=== PATIENT | female | born 1990 | race Caucasian/White ===

== ENCOUNTER 2021-02-21 22:23 | Emergency (ER) | payer BC, SELFPAY ==
[2021-02-21 23:45] VITALS: BP 103/85; PULSE 97; RESP 18; TEMP 37.3; O2SAT 98; BMI 37.8
== END 2021-02-22 00:02 | disposition left against medical advice (07) ==
PROVIDERS: Emergency Provider Emergency Medicine
DX: R06.02 Shortness of breath (principal); R50.9 Fever, unspecified
CPT/HCPCS: 99281; 99282

== ENCOUNTER 2021-02-22 10:25 | Emergency (ER) | payer BC, SELFPAY ==
--- NOTE | ~2021-02-22 | XR_ITS ---
EXAMINATION: XR CHEST CLINICAL INFORMATION: Productive cough. COMPARISON: None TECHNIQUE: 2 views of the chest were obtained. FINDINGS: No significant abnormality is noted involving the heart, lungs, mediastinum, bony thorax or soft tissues. XR/XR chest 2V IMPRESSION: Unremarkable examination.
[2021-02-22 11:09] VITALS: BP 130/82; PULSE 97; RESP 18; TEMP 36.8; O2SAT 97; BMI 31.2
[2021-02-22 12:42] LABS: COVID-19 Test Negative (Negative); IDNOW Serial# 9DD0AD1C
--- NOTE | 2021-02-22 12:45 | ED.URI ---
HPI - URI/Sore Throat General Chief Complaint: Upper Respiratory Symptoms Stated Complaint: bad cough Time Seen by Provider: 02/22/21 12:03 History of Present Illness HPI Narrative: Patient complains and cough and runny nose worsening over past 4 days and now she is coughing up sputum as well no shortness breath no chest pain no vomiting no diarrhea Related Data Previous Rx's Medication Instructions Recorded albuterol sulfate 2 inh INHALATION Q4H PRN #1 ea 02/22/21 azithromycin [Zithromax Z-Raul] See Rx Instructions .ROUTE 02/22/21 .COMPLEX #6 tab benzonatate [Tessalon Perles] 100 mg PO TID PRN #20 cap 02/22/21 ibuprofen 600 mg PO Q6H PRN #20 tab 02/22/21 Allergies Allergy/AdvReac Type Severity Reaction Status Date / Time No Known Allergies Allergy Unverified 05/29/20 17:22 [No Known Allergies*] Review of Systems Review of Systems: Positive for cough with sputum and runny nose Negatives are no fever no chills no dizziness or weakness no fainting no feeling faint no headache no neck pain no chest pain no shortness of breath no abdominal pain no nausea vomiting or diarrhea no calf swelling or pain, no leg swelling, no skin rash Yes all other systems are reviewed and are negative PMFSH Past Medical History Source: nursing notes reviewed Medical History (Updated 02/23/21 @ 00:01 by Ria Sam) No known health problems Social History Social History Advance Directives: Yes Advance Directives Information Provided: Yes Advance Directives on File: No Patient : No Physical Exam Vital Signs: Vital Signs: Last Vital Signs Temp 98.2 F 02/22/21 11:09 Pulse 97 02/22/21 11:09 Resp 18 02/22/21 11:09 BP 130/82 02/22/21 11:09 Pulse Ox 97 02/22/21 11:09 Body Mass Index 31.2 General appearance no acute distress The eyes no redness or discharge The pharynx is clear with moist mucous membranes no redness swelling or exudate Neck is supple Chest clear to auscultation bilaterally Heart no murmur Abdomen soft nontender Extremities no edema no calf tenderness or swelling Skin no rash Course Course Course Narrative: Chest x-ray did not show any pneumonia no acute abnormality, patient is breathing comfortably and is discharged with treatment for bronchitis MDM - URI/Sore Throat Lab Data Labs: Lab Results 02/22/21 Range/Units 12:13 COVID-19 ([facility]) Negative (Negative) COVID-19 Clin Com See Note Discharge Plan Discharge Clinical Impression: Bronchitis Patient Disposition: Home, Self-Care Additional Instructions: COVID test was negative Chest x-ray was normal We started an antibiotic for bronchitis or possible early pneumonia not seen on the x-ray I wrote you for an albuterol inhaler is a heard a very small wheeze, so use it if you develop any shortness of breath or your aware of any wheezing Return any time for difficulty breathing any worse condition or any concerns Prescriptions: New azithromycin [Zithromax Z-Raul] 250 mg tablet See Rx Instructions .ROUTE .COMPLEX Qty: 6 RF: 0 benzonatate [Tessalon Perles] 100 mg capsule 100 mg PO TID PRN (Reason: cough) Qty: 20 RF: 0 ibuprofen 600 mg tablet 600 mg PO Q6H PRN (Reason: fever or pain) Qty: 20 RF: 0 albuterol sulfate 90 mcg/actuation aerosol powdr breath activated 2 inh inhalation Q4H PRN (Reason: shortness of breath or wheezing) Qty: 1 RF: 0 Stand Alone Forms: Work/School Release Interventions: ED Discharge Assessment Last Done: 02/22/21 13:01 Discharge Date/Time: 02/22/21 13:02
== END 2021-02-22 13:02 | disposition home or self-care (01) ==
PROVIDERS: Physician Assistant Medical; Emergency Provider Emergency Medicine Emergency Medical Services
DX: J40 Bronchitis, not specified as acute or chronic (principal); Z20.822 Contact with and (suspected) exposure to COVID-19
CPT/HCPCS: 36415; 71046; 87635; 99283

== ENCOUNTER → 2021-05-20 10:10 | Outpatient (BNVA) | payer OTHER, SELFPAY | PROVIDERS: Visit Provider Physician Assistant Medical | DX: Z13.89 Encounter for screening for other disorder (principal) | CPT/HCPCS: 99203 ==

== ENCOUNTER → 2021-05-22 14:55 | Outpatient (BNVA) | payer OTHER, SELFPAY | PROVIDERS: Visit Provider Physician Assistant Medical | DX: T25.291A Burn of second degree of multiple sites of right ankle and foot, initial encounter (principal); X12.XXXA Contact with other hot fluids, initial encounter | CPT/HCPCS: 99213 ==

== ENCOUNTER → 2021-05-27 09:36 | Outpatient (BNVA) | payer OTHER, SELFPAY | PROVIDERS: Visit Provider Physician Assistant Medical | DX: T25.291A Burn of second degree of multiple sites of right ankle and foot, initial encounter (principal); X12.XXXA Contact with other hot fluids, initial encounter | CPT/HCPCS: 87071; 87077; 87186; 87205; 99213 ==

== ENCOUNTER → 2021-05-29 11:44 | Outpatient (BNVA) | payer OTHER, SELFPAY | PROVIDERS: Visit Provider Physician Assistant | DX: T25.211A Burn of second degree of right ankle, initial encounter (principal); L03.115 Cellulitis of right lower limb | CPT/HCPCS: 99213 ==

== ENCOUNTER → 2021-06-02 13:15 | Outpatient (BNVA) | payer OTHER, SELFPAY | PROVIDERS: Visit Provider Physician Assistant Medical | DX: T25.211A Burn of second degree of right ankle, initial encounter (principal); X58.XXXA Exposure to other specified factors, initial encounter | CPT/HCPCS: 99213 ==

== ENCOUNTER → 2021-06-08 10:53 | Outpatient (BNVA) | payer OTHER, SELFPAY | PROVIDERS: Visit Provider Physician Assistant Medical | DX: T25.221A Burn of second degree of right foot, initial encounter (principal); X12.XXXA Contact with other hot fluids, initial encounter | CPT/HCPCS: 99213 ==

== ENCOUNTER → 2021-06-17 13:24 | Outpatient (BNVA) | payer OTHER, SELFPAY | PROVIDERS: Visit Provider Physician Assistant Medical | DX: T25.221D Burn of second degree of right foot, subsequent encounter (principal) | CPT/HCPCS: 99213 ==

== ENCOUNTER → 2021-06-24 15:44 | Outpatient (BNVA) | payer OTHER, SELFPAY | PROVIDERS: Visit Provider Physician Assistant Medical | DX: T24.201D Burn of second degree of unspecified site of right lower limb, except ankle and foot, subsequent encounter (principal); X08.8XXD Exposure to other specified smoke, fire and flames, subsequent encounter | CPT/HCPCS: 99213 ==

== ENCOUNTER → 2021-07-01 15:10 | Outpatient (BNVA) | payer OTHER, SELFPAY | PROVIDERS: Visit Provider Physician Assistant Medical | DX: T24.201D Burn of second degree of unspecified site of right lower limb, except ankle and foot, subsequent encounter (principal) | CPT/HCPCS: 99213 ==

== ENCOUNTER → 2021-07-15 14:05 | Outpatient (BNVA) | payer OTHER, SELFPAY | PROVIDERS: Visit Provider Physician Assistant Medical | DX: T25.211D Burn of second degree of right ankle, subsequent encounter (principal); X11.8XXD Contact with other hot tap-water, subsequent encounter | CPT/HCPCS: 99213 ==

== ENCOUNTER 2021-08-03 22:10 | Emergency (ER) | payer BC, SELFPAY ==
[2021-08-03 22:37] VITALS: BP 123/64; PULSE 96; RESP 18; TEMP 36.6; O2SAT 98; BMI 35.2
--- NOTE | 2021-08-03 23:30 | ED.WOUNDLAC ---
HPI - Wound/Laceration General Chief Complaint: Wound/Laceration Stated Complaint: Finger lac Time Seen by Provider: 08/03/21 23:21 Source: patient Mode of arrival: ambulatory Limitations: no limitations History of Present Illness HPI narrative: 30-year-old female past medical history significant for asthma presents to the emergency department with complaints of a small laceration to the distal aspect of her right index finger after cutting herself with a can at around 8:00 p.m. today. She states that she can move her finger, and feel it however she was unsure if she would require stitches. She is not up-to-date on tetanus shot. She denies fevers, chills, nausea, vomiting, chest pain, shortness of breath, abdominal pain, weakness. Onset (ago): hour(s) (4) Location: other (right index finger ) Place: home Patient tetanus UTD: No Context: accidental Associated symptoms: pain Related Data Previous Rx's Medication Instructions Recorded albuterol sulfate 90 mcg/actuation 2 inh INHALATION Q4H PRN #1 ea 02/22/21 breath activated powder inhaler azithromycin 250 mg tablet See Rx Instructions .ROUTE 02/22/21 (Zithromax Z-Raul) .COMPLEX #6 tab benzonatate 100 mg capsule 100 mg PO TID PRN #20 cap 02/22/21 (Tessalon Perles) ibuprofen 600 mg tablet 600 mg PO Q6H PRN #20 tab 02/22/21 doxycycline hyclate 100 mg capsule 100 mg PO BID 7 Days #14 cap 08/03/21 Allergies Allergy/AdvReac Type Severity Reaction Status Date / Time No Known Allergies Allergy Unverified 05/29/20 17:22 [No Known Allergies*] Review of Systems Review of Systems: Constitutional : No Fever, No Chills, Cardiovascular : No Chest Pain, No SOB Respiratory : No Dyspnea Gastrointestinal : No abdominal pain Musculoskeletal : No Joint Swelling Skin : No rash, positive skin laceration Neuro : No Weakness, No Numbness Psych : No SI/HI PMFSH Past Medical History Attestation statement: The following information was validated with the patient. Source: old records reviewed and nursing notes reviewed Medical History (Updated 08/03/21 @ 23:35 by TRES Adler) No known health problems Social History Social History Advance Directives: No Advance Directives Information Provided: No Patient : No Physical Exam Vital Signs: Vital Signs: Last Vital Signs Temp 97.8 F 08/03/21 22:37 Pulse 96 08/03/21 22:37 Resp 18 08/03/21 22:37 BP 123/64 08/03/21 22:37 Pulse Ox 98 08/03/21 22:37 Body Mass Index 35.2 Appearance: Alert.? Oriented X3.? No acute distress.? Head: Normocephalic, atraumatic, no step-offs or deformities Eyes: Pupils equal, round and reactive to light.? ENT: Pharynx normal.? Neck: Normal inspection.? Neck supple.? CVS: Normal heart rate and rhythm.? Pulses normal.? Respiratory: No respiratory distress.? Breath sounds normal.? Abdomen: Soft and nontender.? Skin: Skin warm and dry.? Normal skin color.? Normal skin turgor.?+ 2 cm linear superficial laceration to right ventral distal index finger, sensation intact to all digits. Normal strength. Patient able to move all digits. No evident foreign bodies. Extremities: No lower extremity edema.? No calf ttp. 5/5 strength to bilateral upper and lower extremities Back: No midline tenderness, no C-spine tenderness, full range of motion, no CVA tenderness bilaterally Neuro: Oriented X 3.? No motor deficit.? No sensory deficit. MDM - Wound/Laceration MDM Narrative Medical decision making narrative: 2321 30-year-old female past medical history significant for asthma presents to the emergency department with complaints of a laceration to the ventral aspect of her right distal index finger. Patient tells me that she cut her finger on a can. The can was not andrea. She states she can move her finger without an issue, and sensation and motor is intact. She is not to date on a tetanus shot. No SI/HI Upon physical examination patient appears well, no acute distress. Vital signs are stable. S1-S2 appreciated free of murmurs. Lungs are clear. Abdomen soft nontender nondistended. There is 2 cm linear superficial laceration to right ventral distal index finger, sensation intact to all digits. Normal strength. Patient able to move all digits. No evident foreign bodies. No concern for tendon or ligament involvement. As this is a superficial laceration, there is no need to obtain imaging at this time. Bleeding is well controlled. At this time the wound will be thoroughly cleaned/irrigated. I will apply Dermabond to the area. And will discharge the patient home on antibiotics. She will also get her Boostrix shot today. She has been advised to return to the emergency department with any new or worsening symptoms, or signs of infection such as fevers, chills, overlying skin changes, warmth to the area, discharge from the wound. She will be DC on doxycyline Critical Care Time Critical Care Time Critical Care Time: No Discharge Plan Discharge Clinical Impression: Laceration Patient Disposition: Home, Self-Care Instructions: Laceration (ED) Additional Instructions: Take your medications as prescribed. If you were prescribed antibiotics today, it is important that you take your medication to their entirety, do not skip any doses, do not finish them early. Doxycycline was antibiotic prescribed he today, this can cause skin sensitivity and sunlight, stay out of direct sunlight. Follow-up with your primary care provider this week. Return to the emergency department with new or worsening symptoms. Such as fevers, chills, overlying skin changes, warmth to the area, discharge from the wound. You got you TDAP today. In case of emergency call 911 Prescriptions: New doxycycline hyclate 100 mg capsule 100 mg PO BID 7 Days Qty: 14 RF: 0 No Action azithromycin [Zithromax Z-Raul] 250 mg tablet See Rx Instructions .ROUTE .COMPLEX Qty: 6 RF: 0 benzonatate [Tessalon Perles] 100 mg capsule 100 mg PO TID PRN (Reason: cough) Qty: 20 RF: 0 ibuprofen 600 mg tablet 600 mg PO Q6H PRN (Reason: fever or pain) Qty: 20 RF: 0 albuterol sulfate 90 mcg/actuation aerosol powdr breath activated 2 inh inhalation Q4H PRN (Reason: shortness of breath or wheezing) Qty: 1 RF: 0 Referrals: Physician,Unknown J [Primary Care Provider] - 2 days
[2021-08-03] MEDS: Diphth,Pertus(ACell),Tet Adult 0.5 ML SYRINGE IM (23:47)
== END 2021-08-03 23:55 | disposition home or self-care (01) ==
PROVIDERS: Emergency Provider Internal Medicine
DX: S61.210A Laceration without foreign body of right index finger without damage to nail, initial encounter (principal); W26.8XXA Contact with other sharp object(s), not elsewhere classified, initial encounter; Y93.G1 Activity, food preparation and clean up; Y92.030 Kitchen in apartment as the place of occurrence of the external cause; Y99.9 Unspecified external cause status
CPT/HCPCS: 12001; 90471; 90715; 99283; 99284

== ENCOUNTER → 2022-03-22 11:12 | Outpatient (BNVA) | payer OTHER, SELFPAY | PROVIDERS: Visit Provider Physician Assistant Medical | DX: S61.213A Laceration without foreign body of left middle finger without damage to nail, initial encounter (principal); W26.9XXA Contact with unspecified sharp object(s), initial encounter | CPT/HCPCS: 12001; 99203 ==

== ENCOUNTER → 2022-03-24 14:49 | Outpatient (BNVA) | payer OTHER, SELFPAY | PROVIDERS: Visit Provider Physician Assistant Medical | DX: S61.217A Laceration without foreign body of left little finger without damage to nail, initial encounter (principal); W26.9XXA Contact with unspecified sharp object(s), initial encounter | CPT/HCPCS: 99213 ==

== ENCOUNTER → 2022-03-31 14:31 | Outpatient (BNVA) | payer OTHER, SELFPAY | PROVIDERS: Visit Provider Physician Assistant Medical | DX: S61.217A Laceration without foreign body of left little finger without damage to nail, initial encounter (principal); W26.9XXA Contact with unspecified sharp object(s), initial encounter | CPT/HCPCS: 99213 ==

== ENCOUNTER 2023-07-20 15:51 | Outpatient (REF) | payer MEDICARE, SELFPAY ==
--- NOTE | ~2023-07-20 | XR_ITS ---
EXAMINATION: XR ANKLE, RIGHT CLINICAL INFORMATION: Injury COMPARISON: None available. TECHNIQUE: AP, lateral, and mortise views of the right ankle. FINDINGS: Negative for acute fracture or dislocation. The findings just old injury in the region of the medial malleolus. Correlation recommended clinically Spurring at the insertion of the Achilles and plantar aponeuroses on the calcaneus and mild irregularity along the undersurface of the mid calcaneus could be dystrophic degenerative. XR/XR ankle RT min 3V IMPRESSION: No acute fracture or dislocation is seen. Some degenerative changes and other observations possible sequela of previous injury. Correlation recommended clinically.
== END 2023-07-20 15:52 | disposition home or self-care (01) ==
LOC: HO.HHCX 15:51
PROVIDERS: Visit Provider Nurse Practitioner Family
DX: S99.911A Unspecified injury of right ankle, initial encounter (principal); X58.XXXA Exposure to other specified factors, initial encounter; Y93.9 Activity, unspecified; Y92.9 Unspecified place or not applicable; Y99.9 Unspecified external cause status
CPT/HCPCS: 73610

== ENCOUNTER 2023-08-14 21:45 | Emergency (ER) | payer BC, SELFPAY ==
--- NOTE | 2023-08-14 | ECG_ITS ---
Test Reason : SOB Blood Pressure : / mmHG Vent. Rate : 106 BPM Atrial Rate : 106 BPM P-R Int : 116 ms QRS Dur : 078 ms QT Int : 334 ms P-R-T Axes : 045 040 045 degrees QTc Int : 443 ms Sinus tachycardia Otherwise normal ECG No previous ECGs available Referred By: Generic ED Physician Electronically Signed By:NALLELY MONTELONGO
--- NOTE | ~2023-08-14 | XR_ITS ---
EXAMINATION: XR CHEST CLINICAL INFORMATION: Fever and cough. COMPARISON: Chest radiograph 02/22/2021. TECHNIQUE: 2 views of the chest were obtained. FINDINGS: No significant abnormality is noted involving the heart, lungs, mediastinum, bony thorax or soft tissues. XR/XR chest 2V IMPRESSION: Unremarkable examination.
[2023-08-14 22:13] VITALS: BP 121/72; PULSE 110; RESP 16; TEMP 36.5; O2SAT 96; BMI 35.7
[2023-08-14 22:21] LABS: MANUAL DIFF FLAG NO
[2023-08-14 22:23] LABS: Basophils Absolute Auto 0.1 X10*3/uL (0.0-0.2); Basophils Percent Auto 0.5 % (0-2); Eosinophils Percent Auto 0.2 % (0-4); Hematocrit 45.1 % (37.0-47.0); Imm Gran Abs Auto 0.03 X10*3/uL (0.00-0.03); Imm Gran Pct Auto 0.3 % (0.0-0.4); Lymphocytes Absolute Auto 1.6 X10*3/uL (1.2-4.9); Lymphocytes Percent Auto 16.2 % (20-40); Mean Corpuscular HGB Conc 33.3 g/dl (31.0-35.0); Mean Corpuscular Hemoglobin 30.3 pg (27.0-33.0); Mean Corpuscular Volume 91.1 fL (80.0-98.0); Mean Platelet Volume 11.4 fL (9.4-12.3); Monocytes Absolute Auto 0.7 X10*3/uL (0.1-1.2); Monocytes Percent Auto 7.5 % (2-11); Neutrophils Absolute Auto 7.3 x10*3/uL (2.0-8.3); Neutrophils Percent Auto 75.3 % (45-73); Platelet Count 247 X10*3/uL (160-400); Red Blood Count 4.95 X10*6/uL (4.20-5.50); Red Cell Distribution Width 13.1 % (11.0-16.0); White Blood Count 9.6 X10*3/uL (4.8-10.8)
[2023-08-14 22:37] LABS: Alanine Aminotransferase 67 U/L (0-31); Albumin Level 4.1 g/dL (3.5-5.0); Alkaline Phosphatase 113 U/L (39-117); Anion Gap 14 (12-20); Aspartate Amino Transferase 49 U/L (5-31); Bilirubin Total 0.2 mg/dL (0.0-1.0); Blood Urea Nitrogen 9 mg/dL (9-16); Calcium 9.1 mg/dL (8.4-10.2); Carbon Dioxide 20 mmol/L (22-29); Chloride 109 mmol/L (96-108); Creatinine Clr Calc Pharmacy 108.1; Estimated Glomerular Filt Rate > 60; Glucose Random 135 mg/dL (60-115); Potassium 3.6 mmol/L (3.3-5.1); Sodium 139 mmol/L (135-145); Total Protein 7.4 g/dL (6.5-8.0)
[2023-08-14 22:47] LABS: Troponin-I High Sensitivity < 2.7 ng/L (<3.5-17.0)
--- NOTE | 2023-08-15 00:22 | ED_ITS ---
HPI - General Adult General Chief complaint: Upper Respiratory Symptoms Stated complaint: TROUBLE BREATHING/FLU LIKE SYMPTOMS Time Seen by Provider: 08/15/23 00:13 History of Present Illness HPI narrative: Patient is a 32-year-old female with history of asthma who is also a smoker. Yesterday morning she started to feel ill. She has had a runny nose and a cough and sneezing. She says that she felt short of breath last night. She has had a fever over 101 at home. She came to the emergency room for evaluation of the symptoms. She is also complaining of left ear pain. She says that she considers the [facility] her primary care clinic but she has not been there a long time. She says that she has a history of asthma but has not had an albuterol inhaler for a long time either. Related Data Previous Rx's Medication Instructions Recorded albuterol sulfate 90 mcg/actuation 2 inh inhalation Q4H PRN shortness 02/22/21 breath activated powder inhaler of breath or wheezing #1 ea azithromycin 250 mg tablet See Rx Instructions PO .COMPLEX #6 02/22/21 (Zithromax Z-Raul) tabs benzonatate 100 mg capsule 100 mg PO TID PRN cough #20 caps 02/22/21 (Tessalon Perles) ibuprofen 600 mg tablet 600 mg PO Q6H PRN fever or pain 02/22/21 #20 tabs doxycycline hyclate 100 mg capsule 100 mg PO BID 7 days #14 caps 08/03/21 albuterol sulfate 90 mcg/actuation 2 puff inhalation Q4-6H PRN 08/15/23 aerosol inhaler shortness of breath or wheezing #8.5 grams benzonatate 200 mg capsule 200 mg PO TID PRN cough #14 caps 08/15/23 Allergies Allergy/AdvReac Type Severity Reaction Status Date / Time No Known Allergies Allergy Unverified 05/29/20 17:22 [No Known Allergies*] Review of Systems 2 Review of Systems: Yes all other systems are reviewed and are negative [facility] Past Medical History Medical History (Updated 08/15/23 @ 01:15 by Wil Arce MD) No known health problems Social History Social History Advance Directives: No Advance Directives Information Provided: No Physical Exam ED Vital Signs: Vital Signs - 24 hr 08/14/23 22:13 08/15/23 00:33 08/15/23 00:33 Temperature 97.7 F 99.2 F Pulse Rate 110 H Respiratory Rate 16 16 Blood Pressure 121/72 Pulse Oximetry 96 96 96 Oxygen Delivery Method Room Air Room Air Room Air 08/15/23 01:35 Temperature Pulse Rate Respiratory Rate Blood Pressure Pulse Oximetry 96 Oxygen Delivery Method Room Air BMI result Body Mass Index 35.7 Const Other: The patient is awake and alert. She does not appear obviously in distress. HENMT Other: Pharynx is unremarkable. Tympanic membranes are normal. Eyes Other: Pupils are round equal, conjunctivae are clear Neck Other: No cervical adenopathy Resp Other: Very mild wheezes and crackles bilaterally. No respiratory distress. Cardio Other: The patient has a regular rate and rhythm without murmur Skin Other: Dry and unremarkable no rash. Neuro Other: Awake, alert, nontoxic, grossly neurologically intact. Extrem Other: No calf swelling or tenderness. Medications Administered Discontinued Medications Generic Name Dose Route Start Last Admin Trade Name Freq PRN Reason Stop Dose Admin Acetaminophen 975 mg 08/15/23 00:22 08/15/23 00:27 Acetaminophen 325 Mg Tablet PO 08/15/23 00:23 975 mg ONCE ONE Administration Benzonatate 200 mg 08/15/23 01:20 08/15/23 01:31 Benzonatate 100 Mg Capsule PO 08/15/23 01:21 200 mg ONCE ONE Administration Ibuprofen 600 mg 08/15/23 00:22 08/15/23 00:27 Ibuprofen 600 Mg Tablet PO 08/15/23 00:23 600 mg ONCE ONE Administration Medical Decision Making Medical Decision Making [facility] Narrative: The patient presents with 2 days of fever and respiratory symptoms. She ultimately tested positive for influenza type A. She looks clinically stable. She will be treated symptomatically with ibuprofen and acetaminophen. She is an asthmatic and will also be sent a prescription for an albuterol inhaler as she does not have one. She requested a prescription for Tessalon Perles as well. She was given a work note. Lab Data 08/14/23 22:05 08/14/23 22:05 Labs: Lab Results 08/14/23 08/15/23 Range/Units 22:05 00:21 WBC 9.6 (4.8-10.8) X10*3/uL RBC 4.95 (4.20-5.50) X10*6/uL Hgb 15.0 (12.0-16.0) g/dl Hct 45.1 (37.0-47.0) % MCV 91.1 (80.0-98.0) fL MCH 30.3 (27.0-33.0) pg MCHC 33.3 (31.0-35.0) g/dl RDW 13.1 (11.0-16.0) % Plt Count 247 (160-400) X10*3/uL MPV 11.4 (9.4-12.3) fL Immature Gran % (Auto) 0.3 (0.0-0.4) % Neut % (Auto) 75.3 H (45-73) % Lymph % (Auto) 16.2 L (20-40) % [place] % (Auto) 7.5 (2-11) % Eos % (Auto) 0.2 (0-4) % Baso % (Auto) 0.5 (0-2) % Lymph # (Auto) 1.6 (1.2-4.9) X10*3/uL [place] # (Auto) 0.7 (0.1-1.2) X10*3/uL Eos # (Auto) 0.0 (0.0-0.4) X10*3/uL Baso # (Auto) 0.1 (0.0-0.2) X10*3/uL Abs Immat Gran (auto) 0.03 (0.00-0.03) X10*3/uL Absolute Neuts (auto) 7.3 (2.0-8.3) x10*3/uL Absolute Nucleated RBC 0.000 (0.0-0.012) X10*3/uL Nucleated RBC % (auto) 0.0 (0.0-0.2) /100WBC Sodium 139 (135-145) mmol/L Potassium 3.6 (3.3-5.1) mmol/L Chloride 109 H (96-108) mmol/L Carbon Dioxide 20 L (22-29) mmol/L Anion Gap 14 (12-20) BUN 9 (9-16) mg/dL Creatinine 0.72 (0.5-1.4) mg/dL Estim Creat Clear Calc 108.1 Estimated GFR > 60 Random Glucose 135 H (60-115) mg/dL Calcium 9.1 (8.4-10.2) mg/dL Total Bilirubin 0.2 (0.0-1.0) mg/dL AST 49 H (5-31) U/L ALT 67 H (0-31) U/L Alkaline Phosphatase 113 (39-117) U/L Troponin I High Sens < 2.7 (<3.5-17.0) ng/L Total Protein 7.4 (6.5-8.0) g/dL Albumin 4.1 (3.5-5.0) g/dL Influenza Type A (PCR) POSITIVE A (Negative) Influenza Type B (PCR) NEGATIVE (Negative) RSV RNA Qual (PCR) NEGATIVE (Negative) SARS-CoV-2 RNA (RT-PCR) NEGATIVE (Negative) Discharge Plan Discharge Clinical Impression: Influenza A Patient Disposition: Home, Self-Care Instructions: Influenza (ED) Additional Instructions: You have tested positive for the flu today. You should isolate yourself for the next several days. Wear a mask if you are in contact with other people. You may use ibuprofen and acetaminophen as needed for discomfort or fever. I have sent a prescription for albuterol to your pharmacy which he may use for cough or shortness of breath. Please drink lot of fluids. I would also recommend you try to get re-established at the [facility] for primary care. Please also try to reduce or eliminate smoking altogether. Return to the emergency room significantly worse. Prescriptions: New albuterol sulfate 90 mcg/actuation HFA aerosol inhaler 2 puff inhalation Q4-6H PRN (Reason: shortness of breath or wheezing) Qty: 8.5 0RF benzonatate 200 mg capsule 200 mg PO TID PRN (Reason: cough) Qty: 14 0RF No Action azithromycin [Zithromax Z-Raul] 250 mg tablet See Rx Instructions .ROUTE .COMPLEX Qty: 6 0RF Rx Instructions: take 500 mg today (day 1), then 250 mg for 4 days (days 2-5) benzonatate [Tessalon Perles] 100 mg capsule 100 mg PO TID PRN (Reason: cough) Qty: 20 0RF ibuprofen 600 mg tablet 600 mg PO Q6H PRN (Reason: fever or pain) Qty: 20 0RF albuterol sulfate 90 mcg/actuation aerosol powdr breath activated 2 inh inhalation Q4H PRN (Reason: shortness of breath or wheezing) Qty: 1 0RF doxycycline hyclate 100 mg capsule 100 mg PO BID 7 Days Qty: 14 0RF Referrals: Loni Mota MD [Physician] - Stand Alone Forms: Work/School Release Interventions: ED Discharge Assessment Last Done: 08/15/23 01:34 Discharge Date/Time: 08/15/23 01:35
[2023-08-15] MEDS: Acetaminophen 325 MG TABLET 975 MG PO (00:27)
[2023-08-15] MEDS: Ibuprofen 600 MG TABLET PO (00:27)
[2023-08-15 00:33] VITALS: RESP 16; TEMP 37.3; O2SAT 96
[2023-08-15 01:05] LABS: Influenza A PCR POSITIVE (Negative); Influenza B PCR NEGATIVE (Negative); Resp Syncy Virus RNA Qual PCR NEGATIVE (Negative); SARS COV2 PCR INHOUSE NEGATIVE (Negative)
[2023-08-15] MEDS: Benzonatate 100 MG CAPSULE 200 MG PO (01:31)
[2023-08-15 01:35] VITALS: O2SAT 96
== END 2023-08-15 01:35 | disposition home or self-care (01) ==
PROVIDERS: Emergency Provider Emergency Medicine
DX: J10.1 Influenza due to other identified influenza virus with other respiratory manifestations (principal); R09.89 Other specified symptoms and signs involving the circulatory and respiratory systems; R05.9 Cough, unspecified; R50.9 Fever, unspecified; R06.02 Shortness of breath; Z20.822 Contact with and (suspected) exposure to COVID-19; Z20.828 Contact with and (suspected) exposure to other viral communicable diseases
CPT/HCPCS: 0241U; 36415; 71046; 80053; 84484; 85025; 93005; 99284

== ENCOUNTER → 2023-08-14 22:00 | Outpatient (BNV) | payer BC, SELFPAY | PROVIDERS: Emergency Provider Emergency Medicine; Visit Provider Internal Medicine | DX: R00.0 Tachycardia, unspecified (principal) | CPT/HCPCS: 93010 ==

== ENCOUNTER 2023-08-16 15:00 | Outpatient (REF) | payer BC, SELFPAY ==
--- NOTE | ~2023-08-16 | XR_ITS ---
EXAMINATION: XR FOOT, RIGHT CLINICAL INFORMATION: Right great toe trauma. COMPARISON: No similar priors. TECHNIQUE: AP, lateral, and oblique views of the right foot. 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 No acute fractures or malalignment. Redemonstration of small calcaneal spurs. No significant soft tissue abnormality. No unexpected radiopaque foreign bodies. XR/XR foot RT min 3V IMPRESSION: 1. No acute fractures or malalignment. 2. 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
== END 2023-08-16 15:01 | disposition home or self-care (01) ==
LOC: HO.HHCX 15:00
PROVIDERS: Visit Provider Emergency Medicine
DX: M79.674 Pain in right toe(s) (principal)
CPT/HCPCS: 73630

== ENCOUNTER 2025-06-05 13:12 | Emergency (ER) | payer SELFPAY ==
--- NOTE | ~2025-06-05 | XR_ITS ---
EXAMINATION: XR CHEST CLINICAL INFORMATION: cough COMPARISON: August 15, 2023 TECHNIQUE: 2 views of the chest were obtained. FINDINGS: Lungs: No focal consolidation. No evidence of pulmonary edema. Pleura: No pleural effusion or pneumothorax. Heart/Mediastinum: Normal heart and mediastinum. Bones/Soft Tissues: No acute findings. XR/XR chest 2V IMPRESSION: No acute abnormality. Electronically signed by: Holly Christine MD 06/05/2025 02:05 PM EDT
[2025-06-05 13:20] VITALS: BP 114/59; PULSE 93; RESP 14; TEMP 36.3; O2SAT 95; BMI 39.2
--- NOTE | 2025-06-05 13:20 | ED.GENADULT ---
HPI - General Adult General Chief complaint: Upper Respiratory Symptoms Stated complaint: coughing, dizzy, congestion, vomitting Time Seen by Provider: 06/05/25 13:29 Source: patient Mode of arrival: ambulatory Limitations: no limitations History of Present Illness ED Provider: Lydia Cheng PA-C HPI narrative: Patient is a 34 year old assigned female at with no reported medical history presenting to the emergency department today with a cough, nausea, and vomiting. Patient states that they have been feeling generally unwell the last day with nausea, vomiting, and a cough. Patient denies any other complaints at this time. Related Data Previous Rx's ?Medication ?Instructions ?Recorded albuterol sulfate 90 mcg/actuation 2 inh inhalation Q4H PRN shortness 02/22/21 breath activated powder inhaler of breath or wheezing #1 ea azithromycin 250 mg tablet See Rx Instructions PO .COMPLEX #6 02/22/21 (Zithromax Z-Raul) tabs benzonatate 100 mg capsule 100 mg PO TID PRN cough #20 caps 02/22/21 (Tessalon Perles) ibuprofen 600 mg tablet 600 mg PO Q6H PRN fever or pain 02/22/21 #20 tabs doxycycline hyclate 100 mg capsule 100 mg PO BID 7 days #14 caps 08/03/21 albuterol sulfate 90 mcg/actuation 2 puff inhalation Q4-6H PRN 08/15/23 aerosol inhaler shortness of breath or wheezing #8.5 grams benzonatate 200 mg capsule 200 mg PO TID PRN cough #14 caps 08/15/23 ondansetron 4 mg disintegrating 4 mg PO Q8H 3 days #9 tabs 06/05/25 tablet Allergies Allergy/AdvReac Type Severity Reaction Status Date / Time No Known Allergies (No Known Allergy Verified 06/05/25 13:21 Allergies*) Review of Systems Constitutional: Constitutional: Reports as per HPI Eyes: Eyes: Reports as per HPI ENT: Reports as per HPI Cardiovascular: Cardiovascular: Reports as per HPI Respiratory: Respiratory: Reports as per HPI Gastrointestinal: Gastrointestinal: Reports as per HPI Genitourinary: Genitourinary: Reports as per HPI Musculoskeletal: Musculoskeletal: Reports as per HPI Integumentary/Breasts: Skin/Breast: Reports as per HPI Neurologic: Reports as per HPI Psychiatric: Psychiatric: Reports as per HPI Endocrine: Endocrine: Reports as per HPI Hematologic/Lymphatic: Hematologic/Lymphatic: Reports as per HPI Allergic/Immunologic: Allergic/Immunologic: Reports as per HPI [facility] Past Medical History Attestation statement: The following information was validated with the patient. Source: old records reviewed and nursing notes reviewed Medical History No known health problems Physical Exam ED Vital Signs: Vital Signs - 24 hr 06/05/25 13:20 06/05/25 15:03 Temperature 97.3 F 0 F L Pulse Rate 93 74 Respiratory Rate 14 18 Blood Pressure 114/59 L 112/70 Pulse Oximetry 95 97 Oxygen Delivery Method Room Air Room Air BMI result Body Mass Index 39.2 Const General: cooperative, no acute distress, alert and awake Nutritional Appearance: well nourished Orientation/consciousness: patient oriented x3 HENMT Head: Yes normal to inspection and Yes atraumatic Ears: hearing grossly normal bilaterally and external ears normal General nose exam: Normal external nose present, no nasal discharge noted and no epistaxis Face and sinus: Yes normal facial exam, No abrasion and No laceration Mouth: Normal oral and palatal mucosa present, no drooling and no muffled voice Eyes General: appearance normal, both eyes and all related structures Periorbital: periorbital findings normal Eyelids: Yes eyelids normal Conjunctivae: conjunctivae normal Pupils: Equal, round and reactive pupils present EOM: EOMs intact bilaterally Neck Neck: Yes normal visual inspection and Yes full ROM Resp Effort & Inspection: normal respiratory effort and able to speak in complete sentences Neuro General: patient oriented x3, moves all extremities and CN's II-XI intact bilaterally Cranial nerves: Yes Equal, round and reactive pupils present Cognition (Neuro): normal cognition Extrem General: Yes normal to inspection, Yes full ROM and Yes capillary refill normal Psych Appearance: grossly normal Mental Status: mental status grossly normal Affect: normal affect Attitude: cooperative Thought process: Normal thought process present Thought content: Normal thought content present Insight: Good insight present (Psych) Course Course Course Narrative: This is a rapid medical exam performed by Ernesto Fall NP: Additional HPI, ROS, PE not included below will be deferred to primary provider. Patient is a 34y/o F presenting with complaint of congestion, cough, ear pain, nausea and vomiting since yesterday. Plan: strep and viral swabs Medical Decision Making Medical Decision Making [facility] Narrative: Patient is a 34 year old assigned female at with no reported medical history presenting to the emergency department today with a cough, nausea, and vomiting. Patient's physical exam was as noted in the physical exam portion of this note and consistent with a viral illness. Patient's chest x-ray showed no acute process. Patient's COVID-19, influenza, and strep pharyngitis. I explained my physical exam findings as well as all test results to the patient. I answered all questions asked by the patient. I stressed the importance of the patient taking their medication as directed (either prescribed or as the over the counter packaging recommends). I stressed the importance of the patient following up with their primary care provider. I stressed the importance of the patient returning to the emergency department immediately if their symptoms were to worsen or if they were to develop any dizziness, shortness of breath, difficulty breathing, chest pain, blurry vision, loss of vision, nausea, vomiting, abdominal pain, fever, chills, back pain, or any other complaints. Patient verbalized agreement and understanding with this treatment plan and discharge. Differential Diagnosis Differential Diagnoses: The differential diagnosis associated with the presentation includes Viral illness Nausea Vomiting COVID-19 Influenza Admission/Observation Consideration of admission/observation: Escalation of care including admission/observation considered Patient would have been admitted to the hospital had their work up had any findings where hospital admission was appropriate and their clinical presentation warranted hospital admission. Lab Data [facility] Lab Attestation statement: I reviewed the patient's lab results. My interpretation of these studies and their corresponding values is that they are grossly normal. Labs: Lab Results 06/05/25 Range/Units 13:27 COVID-19 ([place]) Negative (Negative) COVID-19 Clin Com See Note Influenza Type A ([place]) Negative (Negative) Influenza Type B ([place]) Negative (Negative) Influenza A & B Note See Note S. pyogenes GrpA [place] Negative (Negative) Independent Interpretation I performed an independent interpretation of an: Plain X-Ray Interpretation: My interpretation is in agreement with the radiologist's impression of this imaging study. Reason for Exam: cough EXAMINATION: XR CHEST CLINICAL INFORMATION: cough COMPARISON: August 15, 2023 TECHNIQUE: 2 views of the chest were obtained. FINDINGS: Lungs: No focal consolidation. No evidence of pulmonary edema. Pleura: No pleural effusion or pneumothorax. Heart/Mediastinum: Normal heart and mediastinum. Bones/Soft Tissues: No acute findings. XR/XR chest 2V IMPRESSION: No acute abnormality. Electronically signed by: Holly Christine MD 06/05/2025 02:05 PM EDT RP Dictated By: Holly Christine MD Signed By: Electronically signed by Holly Christine MD 06/05/25 1406 Radiology Impression Discussion of test interpretation with radiology: I have reviewed the radiologist's reading. Discharge Plan Discharge Clinical Impression: Viral infection Patient Disposition: Home, Self-Care Instructions: Viral Syndrome (ED) Additional Instructions: You have a viral illness. Please be sure to stay hydrated and rest. IF you are prescribed home medications and/or you are taking over the counter medications at home - it is very important you continue to do so as prescribed / directed unless told otherwise. Follow up with your primary care provider. Return to the emergency department immediately if your symptoms worsen or if you develop any numbness, tingling, dizziness, shortness of breath, difficulty breathing, chest pain, blurry vision, loss of vision, nausea, vomiting, abdominal pain, fever, chills, back pain, or any other complaints. Please see the information below about our Patient Portal. If you are not yet enrolled in the [facility] Patient Portal, you will receive an enrollment email invitation following your visit to any [facility] care setting. You may also self-enroll in the Patient Portal by visiting our website: [email or web address] The following information is required to access the Patient Portal: - Your [facility] Medical Record Number - Your personal home email address (must match what is in your electronic medical record, Registration staff can assist with this) - Name - Date of Capabilities of the Patient Portal: - Message some providers - View upcoming appointments - Access your health summary, medical history, and visit history - View current conditions and allergies - View procedure and lab results - View your medications, including guidelines, side effects, and precautions - Complete pre-appointment questionnaires requested by your provider - Ready summary reports of your office visits and procedures To access the Patient Portal Mobile [place], follow these directions: - Search [employer] in the [place] Store or appsplit Store - Download the [place] - Search for [facility] - Enter your login/password Prescriptions: New ondansetron 4 mg tablet,disintegrating 4 mg PO Q8H 3 Days Qty: 9 0RF No Action azithromycin [Zithromax Z-Raul] 250 mg tablet See Rx Instructions .ROUTE .COMPLEX Qty: 6 0RF Rx Instructions: take 500 mg today (day 1), then 250 mg for 4 days (days 2-5) benzonatate [Tessalon Perles] 100 mg capsule 100 mg PO TID PRN (Reason: cough) Qty: 20 0RF ibuprofen 600 mg tablet 600 mg PO Q6H PRN (Reason: fever or pain) Qty: 20 0RF albuterol sulfate 90 mcg/actuation aerosol powdr breath activated 2 inh inhalation Q4H PRN (Reason: shortness of breath or wheezing) Qty: 1 0RF doxycycline hyclate 100 mg capsule 100 mg PO BID 7 Days Qty: 14 0RF albuterol sulfate 90 mcg/actuation HFA aerosol inhaler 2 puff inhalation Q4-6H PRN (Reason: shortness of breath or wheezing) Qty: 8.5 0RF benzonatate 200 mg capsule 200 mg PO TID PRN (Reason: cough) Qty: 14 0RF Referrals: [place] [Primary Care Provider, Medical] Stand Alone Forms: Work/School Release Interventions: ED Discharge Assessment Last Done: 06/05/25 15:03 Discharge Date/Time: 06/05/25 15:05 Print Language: Indian
[2025-06-05 14:15] LABS: COVID-19 Test Negative (Negative); IDNOW Serial# 55D5AD1C
[2025-06-05 14:18] LABS: IDNOW Serial# 58CA691E; Influenza B2 Negative (Negative)
[2025-06-05 14:19] LABS: IDNOW Serial# 08D9AD1C; Strep A Nucleic Acid Negative (Negative)
[2025-06-05 15:03] VITALS: BP 112/70; PULSE 74; RESP 18; TEMP -17.7; TEMP 0; O2SAT 97
--- OUTSIDE RECORDS SUMMARY | 2025-06-05 15:57 | XMS_ITS | Encounter Summary ---
Author Organization [employer] Address [address] [place] [address] [address] [place] [address] Care Team Providers Care Puppet Maker Name Role Phone Luis Miguel Ling Primary Care Provider Unavail able Dorys Gold Primary Care Provider [phone] Encounter Details Date Type Department Care Team (Latest Contact Info) Description 01/22/2022 Abstract [facility] CONVERSIONS Dental, Provider, DDS Social History Tobacco Use Types Packs/Day Years Used Date Smoking Tobacco: Never Assessed Comments Unknown Sex and Gender Information Value Date Recorded Sex Assigned at Female 07/12/2022 10:18 AM EDT Legal Sex Female 10:18 AM EDT Gender Identity Female 07/12/2022 10:18 AM EDT Sexual Orientation Straight 07/12/2022 10 :18 AM EDT documented as of this encounter Plan of Treatment Not on file documented as of this encounter Visit Diagnoses Not on filedocumented in this encounter Care Teams Puppet Maker Relationship Specialty Start Date End Date Luis Miguel Ling AGNP PCP - General Family Medicine 06/22/22 05/22/23 Dorys Gold ANP [address] [place] [id number] PCP - General Family Medicine 05/23/23 documented as of this encounter
--- OUTSIDE RECORDS SUMMARY | 2025-06-05 15:57 | XMS_ITS | Encounter Summary ---
Demographics Address [address] [place] [address] Work Phone Mobile Phone Preferred Language en Marital Status Unknown Catholic Affiliation Unknown Race Other Race Ethnic Group Unknown Author Organization [employer] Address [address] [place] [address] Care Team Providers Care Lay Out Drafter Name Role Phone Dorys Gold Primary Care Provider [phone] Encounter Details Date Type Department Care Team (Late st Contact Info) Description 06/05/2025 Orders Only [facility] External Provider, [facility] Social History Tobacco Use Types Packs/Day Years Used Date Smoking Tobacco: Every Day Cigarettes Smokeless Tobacco: Never Comments Unknown Sex and Gender Information Value Date Recorded Sex Assigned at Female 07/12/2022 10:18 AM EDT Legal Sex Female 10:18 AM EDT Gender Identity Female 07/12/2022 10:18 AM EDT Sexual Orientation Straight 07/12/2022 10 :18 AM EDT documented as of this encounter Plan of Treatment Not on file documented as of this encounter Procedures Procedure Name Priority Date/Time Associated Diagnosis Comments XR CHEST 2 VIEWS Routine 06/05/2025 1:50 PM EDT INFLUENZA A B2 ID NOW ([place]) Routine 06/05/2025 1:27 PM EDT STREP A NUCLEIC ACID Routine 06/05/2025 1:27 PM EDT COVID-19 ID NOW ([place]) Routine 06/05/2025 1:27 PM EDT documented in this encounter Results * XR Chest 2 Views (06/05/2025 1:50 PM EDT) Anatomical Region Laterality Modality Chest Radiographic Kim ging 06/05/2025 1:50 PM EDT Narrative 06/05/2025 2:08 PM EDT [address] [address] XRay Report Signed Patient: Hina Dorado MR#: [id number] 57 : 1990 Acct:[id number] Age/Sex: 34 / F ADM Date: 06/05/25 Loc: .ED Attending Dr: Ordering Physician: Lydia Cheng Date of Service: 06/05/25 Procedure(s): XR chest 2V Accession Number(s): [id number] cc: Lydia Cheng; [facility] Reason for Exam: cough EXAMINATION: XR CHEST CLINICAL INFORMATION: cough COMPARISON: August 15, 2023 TECHNIQUE: 2 views of the chest were obtained. FINDINGS: Lungs: No focal consolidation. No evidence of pulmonary edema. Pleura: No pleural effusion or pneumothorax. Heart/Mediastinum: Normal heart and mediastinum. Bones/Soft Tissues: No acute findings. XR/XR chest 2V IMPRESSION: No acute abnormality. Electronically signed by: Holly Christine MD 06/05/2025 02:05 PM EDT RP Dictated By: Holly Christine MD Signed By: <Electronically signed by Holly Christine MD in OV> 06/05/25 1405 DD/ 1350 TD/TT: 06/05/25 1358 Coroner/Medical Examiner: Procedure Note Donotuseinterpreter, Image - 06/05/[address] [address] XRay Report Signed Patient: Hina DoradoMR#: [id number] 58 : 1990Acct:[id number] Age/Sex: 34 / FADM Date: 06/05/25 Loc: .ED Attending Dr: Ordering Physician: Lydia Cheng Date of Service: 06/05/25 Procedure(s): XR chest 2V Accession Number(s): [id number] cc: Lydia Cheng; [facility] Reason for Exam: cough EXAMINATION: XR CHEST CLINICAL INFORMATION: cough COMPARISON: August 15, 2023 TECHNIQUE: 2 views of the chest were obtained. FINDINGS: Lungs: No focal consolidation. No evidence of pulmonary edema. Pleura: No pleural effusion or pneumothorax. Heart/Mediastinum: Normal heart and mediastinum. Bones/Soft Tissues: No acute findings. XR/XR chest 2V IMPRESSION: No acute abnormality. Electronically signed by: Holly Christine MD 06/05/2025 02:05 PM EDT RP Dictated By: Holly Christien MD Signed By: <Electronically signed by Holly Christine MD in OV> 06/05/25 1405 DD/ 1350 TD/TT: 06/05/25 1358 Coroner/Medical Examiner: [facility] External Provider IMG XR PROCEDURES Final Result * Strep A Nucleic Acid (06/05/2025 1:27 PM EDT) IDNOW SERIAL# [id number] [facility] Strep A Nucleic Acid Negative Negative [facility] Comment:All test results mus t be correlated with clinical findings.This test has not been evaluated for monitoring treatment ofinfection.Additional follow-up testing using the culture method isrequired if the result is negative and clinical symptomspersist, or in the event of an acute rheumatic feveroutbreak. 06/05/2025 1:27 PM EDT 06/05/2025 1:30 PM EDT Generic External Data Provider LAB MICROBIOLOGY - GENERAL ORDERABLES Final Result [facility] [address], [place] [phone] * Influenza A B2 ID NOW ([place]) (06/05/2025 1:27 PM EDT) IDNOW SERIAL# [id number] [facility] Influenza A Negative Negative [facility] Influenza B2 Negative Negative [facility] Influenza A B2 Note See Note [facility] Comment:The [place] ID NOW In fluenza A B2 test is used for thequalitative detection of influenza A and B from patientswith signs and symptoms of respiratory infection.Negative results do not preclude influenza virus infectionand should not be used as the sole basis for diagnosis,treatment or other patient management decisions.There is a risk of false negative results due to thepresence of variants in the viral targets of the assay, lowlevels of virus in the specimen and co- infection withRespiratory Syncytial Virus. 06/05/2025 1:27 PM EDT 06/05/2025 1:30 PM EDT us Generic External Data Provider LAB MICROBIOLOGY - GENERAL ORDERABLES Final Result [facility] [address] [place] [phone] * COVID-19 ID NOW ([place]) (06/05/2025 1:27 PM EDT) IDNOW SERIAL# [id number] [facility] COVID-19 TEST Negative Negative [facility] COVID-19 NOTE See Note [facility] Comment: Results are for the identification of SARS-CoV2 RNA. TheSARS-CoV2 RNA is generally detectable in respiratory samplesduring the acute phase of infection. Positive results areindicative of the presence of SARS-CoV-2 RNA; clinicalcorrelation with patient history and other diagnosticinformation is necessary to determine patient infectionstatus. Positive results do not rule out bacterial infectionor co- infection with other viruses.Testing facilities within the [facility] and itsterritories are required to report all positive results tothe appropriate public health authorities.Negative results should be treated as presumptive and, ifinconsistent with clinical signs and symptoms or necessaryfor patient management, should be tested with differentauthorized or cleared molecular tests. Negative results donot preclude SARS-CoV2 RNA infection and should not be usedas the sole basis for patient management decisions. Negativeresults should be considered in the context of a patient'srecent exposures, history and the presence of clinical signsand symptoms consistent with COVID-19.This test has been authorized by the FDA under an EmergencyUse Authorization (EUA) for use by authorized laboratories.Testing performed on the [employer] ID NOW utilizing NAAT. 06/05/2025 1:27 PM EDT 06/05/2025 1:30 PM EDT us Generic External Data Provider LAB MOLECULAR GABE GNOSTICS ORDERABLES Final Result [facility] [address] [place] [phone] documented in this encounter Visit Diagnoses Not on filedocumented in this encounter Care Teams Lay Out Drafter Relationship Specialty Start Date End Date Dorys Gold ANP [address] [place] [phone] PCP - General Family Medicine 05/23/23 documented as of this encounter
--- OUTSIDE RECORDS SUMMARY | 2025-06-05 15:57 | XMS_ITS | Clinical Summary ---
Author Organization [employer] Address [address] [place] [address] [address] [place] [address] Care Team Providers Care Laborer Beam House Name Role Phone Dorys Gold Primary Care Provider [phone] Allergies No known active allergies Medications * This document contains information received from the source organization and may not represent a complete record from that organization. fluticasone (Flonase) 50 MCG/ACT nasal sprayIndications: Subacute pansinusitis Administer 1 spray into each nostril in the morning. 16 g 2 3 Active azithromycin (Zithromax) 250 MG tabletIndications :Subacute pansinusitis Take 2 tabs PO daily x 1d then 1 tab PO daily on D2 to D5 6 tablet 3 Active nicotine polacrilex (Nicorette) 4 MG gum Chew 1 each (4 mg) every 2 (two) hours if needed for smoking cessation. 100 each 3 Active albuterol 108 (90 Base) MCG/ACT inhalerIndication s:Mild intermittent asthma in adult without complication Inhale 2 puffs every 6 (six) hours if needed for shortness of breath. 18 g 1 5 03/11/20 26 Active Active Problems No known active problems Encounters * This document contains information received from the source organization and may not represent a complete record from that organization. Date Type Department Care Team Description 06/05/2025 Orders Only [facility] External Provider, [facility] 05/09/2025 Patient Outreach [facility] [address] [place] [address] Dorys Gold ANP Pre-visit Planning (Pre visit planning LVM ) 03/11/2025 2:00 PM EDT Office Visit [facility] [address] [place] [address] Dorys Gold ANP Smokes cigarettes (Primary Dx); Viral URI; Acute cough; Acute otitis externa of left ear, unspecified type; Mild intermittent asthma in adult without complication; Anxiety 03/11/2025 Telephone [facility] [address] [place] [address] Dorys Gold ANP PE APPT REQUEST from Last 3 Months Social History Tobacco Use Types Packs/Day Years Used Date Smoking Tobacco: Every Day Cigarettes Smokeless Tobacco: Never Tobacco Cessation:Ready to Q uit: No; Counseling Given: Yes Comments Unknown Sex and Gender Information Value Date Recorded Sex Assigned at Female 07/12/2022 10:18 AM EDT Legal Sex Female 10:18 AM EDT Gender Identity Female 07/12/2022 10:18 AM EDT Sexual Orientation Straight 07/12/2022 10 :18 AM EDT Last Filed Vital Signs Vital Sign Reading Time Taken Comments Blood Pressure 128/78 03/11/2025 2:54 PM EDT Pulse 99 03/11/2025 2:54 PM EDT Temperature 36.9 C (98.4 F) 03/11/2025 2:54 PM EDT Respiratory Rate 18 03/11/2025 2:54 PM EDT Oxygen Saturation 98% 03/11/2025 2:54 PM EDT Inhaled Oxygen Concentration - - Weight 93.4 kg (206 lb) 03/11/2025 2:54 PM EDT Height 152.4 cm (5') 08/12/2023 4:15 PM EST Body Mass Index 40.23 08/12/2023 4:15 PM EST Plan of Treatment Health Maintenance Due Date Last Done Comments Depression Screening 1991 HIV Screening 1991 Lipid Panel 1991 SDOH Screening 1991 Disability Screening 1991 Alcohol/Substance Use Screening 2003 Family Planning (PISQ) 11/23/2006 Hepatitis C Screening 11/23/2009 Pneumococcal Vaccine: Pediatrics (0 to 5 Years) and At-Risk Patients (6 to 49) Years (1 of 2 - PCV) 11/23/2010 Pap Smear 11/23/2012 Cervical Cancer Screening 11/23/2021 HPV/Cotest 11/23/2021 COVID-19 Vaccine ( season) 2025 06/09/2021, 05/12/2021, 11/30/2020 Influenza Vaccine (#1) 2025 07/12/2006 Tobacco Screening 03/11/2026 03/11/2025 DTaP/Tdap/Td Vaccines (8 - Td or Tdap) 08/03/2031 08/03/2021, 02/21/2018, 10/09/2013, Additional history exists Zoster Vaccines (1 of 2) 11/23/2041 RSV Patients and Patients Aged 60 years or older (1 - 1-dose 75+ series) 11/23/2066 HIB Vaccines Completed 06/12/1993, 09/1991, 04/12/1992, Additional history exists IPV Vaccines Completed 04/12/1996, 09/1991, 04/12/1992, Additional history exists Hepatitis B Vaccines Completed 06/12/1996, 01/11/1996, 07/13/1995 HPV Vaccines Completed 06/12/2008, 02/10, 09/21/2006 Meningococcal Vaccine Completed 06/12/2008 Hepatitis A Vaccines Aged Out No long er eligible based on patient's age to complete this topic Meningococcal B Vaccine Aged Out No l onger eligible based on patient's age to complete this topic RSV under 20 months Aged Out No longe r eligible based on patient's age to complete this topic Rotavirus Vaccines Aged Out No longer eligible based on patient's age to complete this topic Procedures Procedure Name Priority Date/Time Associated Diagnosis Comments XR CHEST 2 VIEWS Routine 06/05/2025 1:50 PM EDT COVID-19 ID NOW ([place]) Routine 06/05/2025 1:27 PM EDT STREP A NUCLEIC ACID Routine 06/05/2025 1:27 PM EDT INFLUENZA A B2 ID NOW ([place]) Routine 06/05/2025 1:27 PM EDT POCT INFLUENZA B (ID NOW RAPID MOLECULAR) Routine 03/11/2025 3:05 PM EDT Viral URI POCT INFLUENZA A (ID NOW RAPID MOLECULAR) Routine 03/11/2025 3:05 PM EDT Viral URI POCT RAPID STREP A Routine 03/11/2025 3: 05 PM EDT Viral URI POCT RAPID COVID ANTIGEN Routine 03/11/2025 3:05 PM EDT Viral URI from Last 3 Months Results * XR Chest 2 Views (06/05/2025 1:50 PM EDT) Anatomical Region Laterality Modality Chest Radiographic Kim ging 06/05/2025 1:50 PM EDT Narrative 06/05/2025 2:08 PM EDT [address] [address] XRay Report Signed Patient: Hina Dorado MR#: [id number] 58 : 1990 Acct:[id number] Age/Sex: 34 / F ADM Date: 06/05/25 Loc: .ED Attending Dr: Ordering Physician: Lydia Cheng Date of Service: 06/05/25 Procedure(s): XR chest 2V Accession Number(s): [id number] cc: Lydia Cheng; [facility] Reason for Exam: cough EXAMINATION: XR [...] Holly Christine MD 06/05/2025 02:05 PM EDT Dictated By: Holly Christine MD Signed By: <Electronically signed by Holly Christine MD in OV> 06/05/25 1405 DD/ 1350 TD/TT: 06/05/25 1358 Content Manager: Procedure Note Donotuseinterpreter, Image - 06/05/[address] [address] XRay Report Signed Patient: Hina DoradoMR#: [id number] 58 : 1990Acct:[id number] Age/Sex: 34 / FADM Date: 06/05/25 Loc: HO.ED Attending Dr: Ordering Physician: Lydia Cheng Date of Service: 06/05/25 Procedure(s): XR chest 2V Accession Number(s): [id number] cc: Lydia Cheng; [facility] Reason for Exam: cough EXAMINATION: XR [...] Holly Christine MD 06/05/2025 02:05 PM EDT Dictated By: Holly Christine MD Signed By: <Electronically signed by Holly Christine MD in OV> 06/05/25 1405 DD/ 1350 TD/TT: 06/05/25 1358 Content Manager: [facility] External Provider IMG XR PROCEDURES Final Result * Influenza A B2 ID NOW ([place]) (06/05/2025 1:27 PM EDT) IDNOW SERIAL# [id number] [facility] Influenza A Negative Negative [facility] Influenza B2 Negative Negative [facility] Influenza A B2 Note See Note [facility] Comment:The [place] ID NOW In fluenza [...] LAB MICROBIOLOGY - GENERAL ORDERABLES Final Result Performing Organization Address [facility] Co de Phone Number [facility] [address] [place] [address] [phone] * Strep A Nucleic Acid (06/05/2025 1:27 PM EDT) IDNOW SERIAL# [id number] [facility] Strep A Nucleic Acid Negative Negative [facility] Comment:All test results mus t be correlated with clinical findings.This test has not been evaluated for monitoring treatment ofinfection.Additional follow-up testing using the culture method isrequired if the result is negative and clinical symptomspersist, or in the event of an acute rheumatic feveroutbreak. 06/05/2025 1:27 PM EDT 06/05/2025 1:30 PM EDT Generic External Data Provider LAB MICROBIOLOGY - GENERAL ORDERABLES Final Result Performing Organization Address [facility] de Phone Number [facility] [address] [place] [address] [phone] * COVID-19 ID NOW ([place]) (06/05/2025 1:27 PM EDT) IDNOW SERIAL# [id number] [facility] COVID-19 TEST Negative Negative [facility] COVID-19 NOTE See Note [facility] Comment: Results are for the identification of SARS-CoV2 RNA. TheSARS-CoV2 RNA is generally detectable in respiratory samplesduring the acute phase of infection. Positive results areindicative of the presence of SARS-CoV-2 RNA; clinicalcorrelation with patient history and other diagnosticinformation is necessary to determine patient infectionstatus. Positive results do not rule out bacterial infectionor co- infection with other viruses.Testing facilities within the [facility] and itsterritories are required to report all [...] use by authorized laboratories.Testing performed on the [employer] NOW utilizing NAAT. 06/05/2025 1:27 PM EDT 06/05/2025 1:30 PM EDT Generic External Data Provider LAB MOLECULAR GABE GNOSTICS ORDERABLES Final Result Performing Organization Address [facility]/ZIP Co de Phone Number [facility] [address] [place] [phone] * Influenza B (ID NOW Rapid Molecular) (03/11/2025 3:05 PM EDT) [facility] Influenza B Negative Negative, Indeterminate [facility] Swab 03/11/2025 3:05 PM EDT us Dorys [facility] POINT OF CARE TEST ENTER/EDIT OR DERABLES Final Result Performing Organization Address [facility]/ZIP Co de Phone Number [facility] [address] [place] [phone] * Influenza A (ID NOW Rapid Molecular) (03/11/2025 3:05 PM EDT) [facility] Influenza A Negative Negative, Indeterminate [facility] Swab 03/11/2025 3:05 PM EDT Dorys Gold ANP POINT OF CARE TEST ENTER/EDIT OR DERABLES Final Result Performing Organization Address [facility] Co de Phone Number [facility] [address] [place] [address] [phone] * POCT Rapid COVID Ag (03/11/2025 3:05 PM EDT) Rapid COVID Ag Negative [facility] Swab 03/11/2025 3:05 PM EDT Dorys Gold ANP POINT OF CARE TEST ENTER/EDIT OR DERABLES Final Result Performing Organization Address [facility] Phone Number [facility] [address] [place] [phone] * POCT rapid strep A manually resulted (03/11/2025 3:05 PM EDT) Rapid Strep A Screen Negative Negative, None Detected [facility] Swab 03/11/2025 3:05 PM EDT Dorys Gold ANP POINT OF CARE TEST ENTER/EDIT OR DERABLES Final Result Performing Organization Address [facility] de Phone Number [facility] [address] [place] [phone] from Last 3 Months Insurance [facility] HMO Care Teams Laborer Beam House Relationship Specialty Start Date End Date Dorys Gold ANP [address] [place] [address] [phone] PCP - General Family Medicine 05/23/23
--- OUTSIDE RECORDS SUMMARY | 2025-06-05 15:57 | XMS_ITS | Encounter Summary ---
Author Organization [employer] Address [address] [place] [address] [address] [place] [address] Care Team Providers Care Typesetter Perforator Operator Name Role Phone Luis Miguel Ling Primary Care Provider Unavail able Dorys Gold Primary Care Provider [phone] Encounter Details Date Type Department Care Team (Latest Contact Info) Description 06/11/2019 Abstract [facility] CONVERSIONS Dental, Provider, DDS Social History [...] on filedocumented in this encounter Care Teams Typesetter Perforator Operator Relationship Specialty Start Date End Date Luis Miguel Ling AGNP PCP - General Family Medicine 06/22/22 05/22/23 Dorys Gold ANP [address] [place] [phone] PCP - General Family Medicine 05/23/23 documented as of this encounter
== END 2025-06-05 15:05 | disposition home or self-care (01) ==
PROVIDERS: Registered Nurse Emergency; Emergency Provider Emergency Medicine
DX: B34.9 Viral infection, unspecified (principal)
CPT/HCPCS: 71046; 87502; 87635; 87651; 99283

== ENCOUNTER → 2025-06-05 13:32 | Outpatient (BNV) | payer MEDICAID, SELFPAY | PROVIDERS: Emergency Provider Emergency Medicine; Visit Provider Radiology Body Imaging | DX: R05.9 Cough, unspecified (principal) | CPT/HCPCS: 71046 ==